=== PATIENT | male | born 1950 | race Caucasian/White ===

== ENCOUNTER 2017-12-04 13:22 | Emergency (ER) | payer MEDICARE, OTHER ==
[~2017-12-04] VITALS: Ht 167.6 cm; Wt 77.1 kg
[~2017-12-04 13:22] MED LIST: DIAZ10 PO; HYDACE5 PO; IBUP800 PO; PRED20 PO
[2017-12-04] MEDS ORDERED: ATOR20 PO (14:04)
[2017-12-04] MEDS ORDERED: LOSARTAN POTAS100 MG PO (14:04)
[2017-12-04] MEDS ORDERED: Metformin HCl1000 MG PO (14:05)
[2017-12-04 14:52] LABS: BASOPHILS ABSOLUTE AUTO 0.07 K/mm3 (0.00-0.23); BASOPHILS PERCENT AUTO 1 % (0-2); EOSINOPHILS ABSOLUTE AUTO 0.43 K/mm3 (0.00-0.68); EOSINOPHILS PERCENT AUTO 4 % (0-6); Hematocrit 44.1 % (37.0-53.0); Hemoglobin 14.1 g/dL (13.5-17.5); IMMATURE GRAN ABSOLUTE AUTO 0.04 K/mm3 (0.00-0.10); IMMATURE GRAN PERCENT AUTO 0 % (0-1); LYMPHOCYTES ABSOLUTE AUTO 2.58 K/mm3 (0.84-5.20); LYMPHOCYTES PERCENT AUTO 24 % (21-46); MONOCYTES ABSOLUTE AUTO 1.46 K/mm3 (0.16-1.47); MONOCYTES PERCENT AUTO 13 % (4-13); Mean Corpuscular HGB 29.4 pg (26.0-34.0); Mean Corpuscular Volume 92 fL (80-100); Mean Platelet Volume 10.1 fL (9.1-12.4); NEUTROPHILS ABSOLUTE AUTO 6.37 K/mm3 (1.96-9.15); NEUTROPHILS PERCENT AUTO 58 % (41-73); Platelet Count 189 K/mm3 (150-400); RDW Standard Deviation 44.7 fL (35.1-46.3); Red Blood Cell Count 4.79 M/mm3 (4.30-5.90); White Blood Cell Count 10.95 K/mm3 (4.00-11.30)
[2017-12-04 15:00] LABS: Alanine Aminotransfer (ALT/SGP 30 U/L (12-78); Albumin, Blood 3.9 g/dL (3.4-5.0); Albumin/Globulin Ratio 1.1 (0.8-1.8); Alk Phos 101 U/L (50-136); Anion Gap 8 mmol/L (6-16); Aspartate Aminotrans (AST/SGOT 19 U/L (12-37); Bilirubin, Total 0.5 mg/dL (0.1-1.0); Blood Urea Nitrogen 14 mg/dL (8-24); Bun/Creatinine Ratio 15.1 (12.0-20.0); CO2, Blood 29 mmol/L (21-32); Calcium, Blood 8.6 mg/dL (8.5-10.1); Chloride, Blood 105 mmol/L (98-108); Creatinine, Blood 0.93 mg/dL (0.60-1.20); Globulin, Blood 3.6 g/dL (2.2-4.0); Glomerular Filtration Rate >60 (60-); Glucose, Blood 135 mg/dL (70-99); Potassium, Blood 3.9 mmol/L (3.5-5.5); Sodium, Blood 142 mmol/L (136-145); Total Protein, Blood 7.5 g/dL (6.4-8.2); Troponin I <0.015 ng/mL (0.000-0.040)
[2017-12-04] MEDS ORDERED: ALBU90OI INH (16:01)
[2017-12-04] MEDS ORDERED: PRED20 PO (16:01)
== END 2017-12-04 16:10 | disposition home or self-care (01) ==
LOC: ER 13:22
PROVIDERS: Emergency Medicine
DX: J20.9 Acute bronchitis, unspecified (principal); J45.909 Unspecified asthma, uncomplicated; Z88.5 Allergy status to narcotic agent; Z79.899 Other long term (current) drug therapy; Z79.84 Long term (current) use of oral hypoglycemic drugs; F17.210 Nicotine dependence, cigarettes, uncomplicated
CPT/HCPCS: 36415; 71046; 80053; 83880; 84443; 84484; 85025; 93005; 93010; 94644; 94664; 99284-25

== ENCOUNTER 2019-01-15 04:42 | Emergency (ER) | payer OTHER, MEDICARE ==
[~2019-01-15] VITALS: Ht 172.7 cm; Wt 72.6 kg
[~2019-01-15 04:42] MED LIST changes: +ALBU90OI INH; +ATOR20 PO; +LOSARTAN POTAS100 MG PO; +Metformin HCl1000 MG PO
[2019-01-15] MEDS ORDERED: THERA1 EACH PO (04:56)
[2019-01-15] MEDS ORDERED: ASCO500 PO (04:57)
[2019-01-15] MEDS ORDERED: Aspir 8181 MG PO (04:57)
[2019-01-15 05:54] LABS: BASOPHILS ABSOLUTE AUTO 0.07 K/mm3 (0.00-0.23); BASOPHILS PERCENT AUTO 1 % (0-2); EOSINOPHILS ABSOLUTE AUTO 0.38 K/mm3 (0.00-0.68); EOSINOPHILS PERCENT AUTO 3 % (0-6); Hematocrit 43.9 % (37.0-53.0); Hemoglobin 13.8 g/dL (13.5-17.5); IMMATURE GRAN ABSOLUTE AUTO 0.05 K/mm3 (0.00-0.10); IMMATURE GRAN PERCENT AUTO 0 % (0-1); LYMPHOCYTES ABSOLUTE AUTO 1.61 K/mm3 (0.84-5.20); LYMPHOCYTES PERCENT AUTO 13 % (21-46); MONOCYTES ABSOLUTE AUTO 1.14 K/mm3 (0.16-1.47); MONOCYTES PERCENT AUTO 9 % (4-13); Mean Corpuscular HGB 29.4 pg (26.0-34.0); Mean Corpuscular HGB Conc 31.4 g/dL (31.5-36.5); Mean Corpuscular Volume 93 fL (80-100); Mean Platelet Volume 10.8 fL (9.1-12.4); NEUTROPHILS ABSOLUTE AUTO 9.41 K/mm3 (1.96-9.15); NEUTROPHILS PERCENT AUTO 74 % (41-73); Platelet Count 189 K/mm3 (150-400); RDW Coefficient Variation 13.2 % (11.7-14.2); RDW Standard Deviation 45.2 fL (35.1-46.3); White Blood Cell Count 12.66 K/mm3 (4.00-11.30)
[2019-01-15 06:20] LABS: Alanine Aminotransfer (ALT/SGP 29 U/L (12-78); Albumin, Blood 3.6 g/dL (3.4-5.0); Albumin/Globulin Ratio 1.1 (0.8-1.8); Alk Phos 92 U/L (50-136); Anion Gap 2 mmol/L (6-16); Aspartate Aminotrans (AST/SGOT 18 U/L (12-37); Bilirubin, Total 0.4 mg/dL (0.1-1.0); Blood Urea Nitrogen 13 mg/dL (8-24); Bun/Creatinine Ratio 14.9 (12.0-20.0); CO2, Blood 30 mmol/L (21-32); Calcium, Blood 8.9 mg/dL (8.5-10.1); Chloride, Blood 110 mmol/L (98-108); Creatinine, Blood 0.88 mg/dL (0.60-1.20); Globulin, Blood 3.3 g/dL (2.2-4.0); Glomerular Filtration Rate >60 (60-); Glucose, Blood 144 mg/dL (70-99); Potassium, Blood 3.9 mmol/L (3.5-5.5); Sodium, Blood 142 mmol/L (136-145); Total Protein, Blood 6.9 g/dL (6.4-8.2); Troponin I <0.015 ng/mL (0.000-0.040)
[2019-01-15] MEDS ORDERED: ALBU90OI INH (06:53)
[2019-01-15] MEDS ORDERED: Prednisone20 MG PO (06:53)
== END 2019-01-15 07:32 | disposition home or self-care (01) ==
LOC: ER 04:42
PROVIDERS: Emergency Medicine
DX: J44.1 Chronic obstructive pulmonary disease with (acute) exacerbation (principal); F17.210 Nicotine dependence, cigarettes, uncomplicated; E11.9 Type 2 diabetes mellitus without complications; D72.829 Elevated white blood cell count, unspecified
CPT/HCPCS: 36415; 71046; 80053; 83880; 84484; 85025; 93005; 93010; 94640; 96374; 99284-25; J2930

== ENCOUNTER 2020-04-28 09:03 | Day surgery (SDC) | payer MEDICARE, OTHER ==
[~2020-04-28] VITALS: Ht 172.7 cm; Wt 84.2 kg
[~2020-04-28 09:03] MED LIST changes: +ASCO500 PO; +Aspir 8181 MG PO; +METO25ER PO; +Prednisone20 MG PO; +THERA1 EACH PO
--- NOTE | 2020-04-28 10:38 | NUR ---
Ambulatory in Day Surgery History, Chart, Medications and Allergies reviewed before start of procedure.Lungs clear T/O to Auscultation. Patient confirms NPO status and agrees with scheduled surgery. Pre-Op teaching done. Pt verbalizes understanding.
--- NOTE | 2020-04-28 18:23 | NUR ---
SHIFT SUMMARY UNFORTUNATLY, SPINAL CONT'S TO HAVE NUMBESS IN BOTTOCKS SO UNABLE TO AMBULATE. DENIES PAIN. EATING, DRINKING, & VOIDING.
[2020-04-29 04:48] LABS: BASOPHILS ABSOLUTE AUTO 0.05 K/mm3 (0.00-0.23); BASOPHILS PERCENT AUTO 0 % (0-2); EOSINOPHILS ABSOLUTE AUTO 0.58 K/mm3 (0.00-0.68); EOSINOPHILS PERCENT AUTO 5 % (0-6); Hematocrit 37.6 % (37.0-53.0); IMMATURE GRAN ABSOLUTE AUTO 0.05 K/mm3 (0.00-0.10); IMMATURE GRAN PERCENT AUTO 0 % (0-1); LYMPHOCYTES PERCENT AUTO 28 % (21-46); MONOCYTES ABSOLUTE AUTO 1.03 K/mm3 (0.16-1.47); MONOCYTES PERCENT AUTO 9 % (4-13); Mean Corpuscular HGB 28.8 pg (26.0-34.0); Mean Corpuscular HGB Conc 31.9 g/dL (31.5-36.5); Mean Corpuscular Volume 90 fL (80-100); Mean Platelet Volume 10.6 fL (9.1-12.4); NEUTROPHILS ABSOLUTE AUTO 6.63 K/mm3 (1.96-9.15); NEUTROPHILS PERCENT AUTO 57 % (41-73); Platelet Count 186 K/mm3 (150-400); RDW Coefficient Variation 12.5 % (11.7-14.2); RDW Standard Deviation 41.1 fL (35.1-46.3); Red Blood Cell Count 4.17 M/mm3 (4.30-5.90); White Blood Cell Count 11.64 K/mm3 (4.00-11.30)
[2020-04-29 05:06] LABS: Bun/Creatinine Ratio 21.1 (12.0-20.0); Calcium, Blood 8.4 mg/dL (8.5-10.1); Creatinine, Blood 1.28 mg/dL (0.60-1.20); Magnesium, Blood 1.7 mg/dL (1.6-2.4); Potassium, Blood 4.7 mmol/L (3.5-5.5)
--- NOTE | 2020-04-29 06:29 | NUR ---
SHIFT SUMMARY: PT POD#1 FOR A LEFT TKA. TERRI WRAP C/D/I WITH POLAR PACK IN PLACE. PAIN BEING MANAGED WITH NORCO AND TORADOL PER EMAR. PT AMBULATING HALLWAY WITH SBA AND FWW/GB. SITTING IN CHAIR THIS MORNING. CBG WNL WITHOUT NEEDING COVERAGE. IV ABX COMPLETE. PT LA PO. VOIDED ONCE THIS SHIFT. PT ENC TO INCREASE PO INTAKE. PLAN FOR PHYSICAL THERAPY TODAY AND DISCHARGE HOME.
[2020-04-29] MEDS ORDERED: HYDR1TAB94 PO (08:55)
--- NOTE | 2020-04-29 14:00 | NUR ---
DISCHARGE ESCORTED OUT VIA W/C AFTER CLEARING THERAPY. PAIN REASONABLY MANAGED. EATING, DRINKING, VOIDING WELL. URINE IS DARK; PT ENCOURAGED TO DRINK MORE WATER VS COFFEE. SCRIPT, DRSGS, & POLAR PACK SENT.
[2020-05-09] MEDS ORDERED: Percocet 5-3251 EACH PO (00:48)
== END 2020-04-29 14:00 | disposition home or self-care (01) ==
LOC: ORSCMMR 09:03 → ORD 10:45 → ORSCMMR 11:00 → ORD 11:00 → SURS 14:03 → ORSCMMR 04-29 14:00
PROVIDERS: Orthopaedic Surgery
PROC: 0SRD0JA Replacement of Left Knee Joint with Synthetic Substitute, Uncemented, Open Approach (ICD-10-PCS; principal; 2020-04-28 11:00)
PROC: 8E0Y0CZ Robotic Assisted Procedure of Lower Extremity, Open Approach (ICD-10-PCS; principal; 2020-04-28 11:00)
DX: M17.12 Unilateral primary osteoarthritis, left knee (principal); I10 Essential (primary) hypertension; J44.9 Chronic obstructive pulmonary disease, unspecified; E11.9 Type 2 diabetes mellitus without complications; E78.5 Hyperlipidemia, unspecified; Z87.891 Personal history of nicotine dependence; Z79.84 Long term (current) use of oral hypoglycemic drugs; Z79.899 Other long term (current) drug therapy
CPT/HCPCS: 27447; S2900; 36415; 73560-LT; 80048; 82947; 83735; 85025; 88300; 97110; 97116; 97162; A9270; C1776; J0171; J0461; J0690; J0735; J1815; J1885; J2250; J2405; J2704; J2795; J7120

== ENCOUNTER 2021-08-14 18:16 | Emergency (ER) | payer MEDICARE, OTHER ==
[~2021-08-14] VITALS: Ht 172.7 cm; Wt 73.5 kg
[~2021-08-14 18:16] MED LIST changes: +HYDR1TAB94 PO; +Percocet 5-3251 EACH PO
[2021-08-14 18:55] LABS: Calcium, Ionized (POC) 1.15 mmol/L (1.10-1.46); Chloride (POC) 98 mmol/L (98-108); Creatinine (POC) 1.6 mg/dL (0.8-1.3); Glucose (ISTAT POC) 490 mg/dL (70-99); Hemoglobin (POC) 10.5 g/dL (13.5-17.5); Potassium (POC) 5.7 mmol/L (3.5-5.5); Sodium (POC) 133 mmol/L (135-148); Total CO2 (POC) 17 mmol/L (21-32)
[2021-08-14 19:00] LABS: Hematocrit 32.2 % (37.0-53.0); Hemoglobin 9.6 g/dL (13.5-17.5); Mean Corpuscular HGB 28.5 pg (26.0-34.0); Mean Corpuscular HGB Conc 29.8 g/dL (31.5-36.5); Mean Corpuscular Volume 96 fL (80-100); Mean Platelet Volume 11.1 fL (9.1-12.4); Platelet Count 217 K/mm3 (150-400); RDW Coefficient Variation 13.5 % (11.7-14.2); RDW Standard Deviation 47.7 fL (35.1-46.3); Red Blood Cell Count 3.37 M/mm3 (4.30-5.90); White Blood Cell Count 13.46 K/mm3 (4.00-11.30)
[2021-08-14 19:19] LABS: Albumin, Blood 2.5 g/dL (3.4-5.0); Albumin/Globulin Ratio 0.7 (0.8-1.8); Bilirubin, Total 0.4 mg/dL (0.1-1.0); Bun/Creatinine Ratio 24.4 (12.0-20.0); Calcium, Blood 8.4 mg/dL (8.5-10.1); Creatinine, Blood 1.6 mg/dL (0.60-1.20); Globulin, Blood 3.4 g/dL (2.2-4.0); Potassium, Blood 5.8 mmol/L (3.5-5.5); Total Protein, Blood 5.9 g/dL (6.4-8.2)
[2021-08-14 19:27] LABS: BAND PERCENT MAN 42 % (0-8); BASOPHILS PERCENT MAN 0 % (0-2); EOSINOPHILS PERCENT MAN 0 % (0-6); LYMPHOCYTES ABSOLUTE MAN 0.53 K/mm3 (0.84-5.20); LYMPHOCYTES PERCENT MAN 4 % (21-46); MONOCYTES ABSOLUTE MAN 1.21 K/mm3 (0.16-1.47); MONOCYTES PERCENT MAN 9 % (4-13); NEUTROPHILS ABSOLUTE MAN 11.71 K/mm3 (1.96-9.15); SEG NEUTROPHILS PERCENT MAN 45 % (41-73); TOTAL CELLS COUNTED 100
[2021-08-14 19:51] LABS: International Normalized Ratio 1.15
[2021-08-14 20:27] LABS: Beta-hydroxybutyrate 6.8 mg/dL (0.2-2.8)
[2021-08-14 20:46] LABS: PCO2 Venous 47.8 mmHg (38-42); pH Blood Venous 7.23 (7.34-7.37)
[2021-08-14 20:47] LABS: Base Excess Venous -7.4 mmol/L; Bicarbonate Venous 18.3 mmol/L (24.0-30.0)
[2021-08-14 22:57] LABS: Base Excess Venous 0.9 mmol/L; Bicarbonate Venous 24.8 mmol/L (24.0-30.0); PCO2 Venous 48.9 mmHg (38-42); PO2 Venous 59.4 mmHg (38-42); pH Blood Venous 7.34 (7.34-7.37)
[2021-08-14 23:00] LABS: Hematocrit 26.8 % (37.0-53.0); Hemoglobin 8.5 g/dL (13.5-17.5); Mean Corpuscular HGB 28.5 pg (26.0-34.0); Mean Corpuscular HGB Conc 31.7 g/dL (31.5-36.5); Mean Platelet Volume 11.2 fL (9.1-12.4); Platelet Count 165 K/mm3 (150-400); RDW Coefficient Variation 13.4 % (11.7-14.2); RDW Standard Deviation 44.4 fL (35.1-46.3); Red Blood Cell Count 2.98 M/mm3 (4.30-5.90); White Blood Cell Count 11.34 K/mm3 (4.00-11.30)
[2021-08-14 23:05] LABS: Calcium, Ionized (POC) 1.17 mmol/L (1.10-1.46); Chloride (POC) 98 mmol/L (98-108); Creatinine (POC) 1.4 mg/dL (0.8-1.3); Glucose (ISTAT POC) 425 mg/dL (70-99); Hemoglobin (POC) 8.5 g/dL (13.5-17.5); Potassium (POC) 4.4 mmol/L (3.5-5.5); Sodium (POC) 136 mmol/L (135-148); Total CO2 (POC) 24 mmol/L (21-32)
[2021-08-14 23:05] LABS: Mean Corpuscular Volume 90 fL (80-100)
[2021-08-14 23:15] LABS: Bun/Creatinine Ratio 34.4 (12.0-20.0); Calcium, Blood 8.2 mg/dL (8.5-10.1); Creatinine, Blood 1.28 mg/dL (0.60-1.20); Potassium, Blood 4.6 mmol/L (3.5-5.5)
== END 2021-08-14 23:45 | disposition short-term general hospital (02) ==
LOC: ER 18:16
PROVIDERS: Emergency Medicine; Student in an Organized Health Care Education/Training Program
DX: K92.2 Gastrointestinal hemorrhage, unspecified (principal); D62 Acute posthemorrhagic anemia; E11.10 Type 2 diabetes mellitus with ketoacidosis without coma; J18.9 Pneumonia, unspecified organism; N17.9 Acute kidney failure, unspecified; J40 Bronchitis, not specified as acute or chronic; J44.1 Chronic obstructive pulmonary disease with (acute) exacerbation; Z88.5 Allergy status to narcotic agent
CPT/HCPCS: 71045; 74177; 80047; 80048; 80053; 82010; 82803; 82947; 83605; 85014; 85025; 85027; 85610; 85730; 86850; 86900; 86901; 86923; 93005; 93010; 94640; 94644; 94664; C9113; J0456; J0610; J0696; J1815; J2930; J7030; J7060; Q9967

== ENCOUNTER → 2021-10-02 | Outpatient (CLI) | payer MEDICARE, OTHER | LOC: LAB SHORT 10:30 → LAB 10:30 → LAB SHORT 10-05 10:30 | DX: K29.50 Unspecified chronic gastritis without bleeding (principal); B96.81 Helicobacter pylori [H. pylori] as the cause of diseases classified elsewhere | CPT/HCPCS: 87338 ==

== ENCOUNTER → 2022-09-09 | Outpatient (CLI) | payer MEDICARE, OTHER ==
[2022-09-09 18:10] LABS: BASOPHILS ABSOLUTE AUTO 0.04 K/mm3 (0.00-0.23); BASOPHILS PERCENT AUTO 1 % (0-2); EOSINOPHILS ABSOLUTE AUTO 0.14 K/mm3 (0.00-0.68); EOSINOPHILS PERCENT AUTO 2 % (0-6); Hematocrit 39.2 % (37.0-53.0); Hemoglobin 12.8 g/dL (13.5-17.5); IMMATURE GRAN ABSOLUTE AUTO 0.03 K/mm3 (0.00-0.10); IMMATURE GRAN PERCENT AUTO 0 % (0-1); LYMPHOCYTES PERCENT AUTO 10 % (21-46); MONOCYTES ABSOLUTE AUTO 1.28 K/mm3 (0.16-1.47); MONOCYTES PERCENT AUTO 15 % (4-13); Mean Corpuscular HGB 29.7 pg (26.0-34.0); Mean Corpuscular HGB Conc 32.7 g/dL (31.5-36.5); Mean Corpuscular Volume 91 fL (80-100); NEUTROPHILS ABSOLUTE AUTO 6.23 K/mm3 (1.96-9.15); NEUTROPHILS PERCENT AUTO 72 % (41-73); Platelet Count 205 K/mm3 (150-400); RDW Coefficient Variation 13.4 % (11.7-14.2); RDW Standard Deviation 44.8 fL (35.1-46.3); Red Blood Cell Count 4.31 M/mm3 (4.30-5.90); White Blood Cell Count 8.62 K/mm3 (4.00-11.30)
[2022-09-09 18:20] LABS: Albumin, Blood 3.3 g/dL (3.4-5.0); Albumin/Globulin Ratio 0.8 (0.8-1.8); Bilirubin, Total 0.6 mg/dL (0.1-1.0); Bun/Creatinine Ratio 13.3 (12.0-20.0); Calcium, Blood 9.4 mg/dL (8.5-10.1); Creatinine, Blood 1.2 mg/dL (0.60-1.20); Globulin, Blood 4.1 g/dL (2.2-4.0); Total Protein, Blood 7.4 g/dL (6.4-8.2)
== END ==
LOC: LAB SHORT 18:04 → LAB 18:04
PROVIDERS: Physician Assistant
DX: R05.9 Cough, unspecified (principal); R07.89 Other chest pain
CPT/HCPCS: 80053; 84484; 85025

== ENCOUNTER → 2023-08-08 | Outpatient (CLI) | payer MEDICARE, OTHER | LOC: LAB SHORT 07:35 → LAB 07:35 | DX: L72.8 Other follicular cysts of the skin and subcutaneous tissue (principal) | CPT/HCPCS: 88304 ==

== ENCOUNTER 2024-03-22 19:04 | Observation (INO) | payer OTHER, MEDICARE ==
[~2024-03-22] VITALS: Ht 172.7 cm; Wt 76.9 kg
[~2024-03-22 19:04] MED LIST changes: +ALBU2.5V5 INH; +Acetaminophen325 M1 PO; +CEPH500 PO; +FLUTICASONE-SA1 EAC1 INH; +IPRAT-ALBUT 0.5-3 ML INH; +METF500 PO; -Metformin HCl1000 MG PO; +ONE DAILY MUL400 MCG PO; +Prednisone10 MG PO; +VISBIOME 112.51 EACH PO
[2024-03-22] MEDS ORDERED: PANT40 PO (19:30)
[2024-03-22] MEDS ORDERED: TRAZ50 PO (19:31)
[2024-03-22] MEDS ORDERED: LYUMJEV KW100 UNIT/1 SQ (19:33)
[2024-03-22 20:03] LABS: BASOPHILS ABSOLUTE AUTO 0.04 K/mm3 (0.00-0.23); BASOPHILS PERCENT AUTO 0 % (0-2); EOSINOPHILS ABSOLUTE AUTO 0.03 K/mm3 (0.00-0.68); EOSINOPHILS PERCENT AUTO 0 % (0-6); Hematocrit 38.2 % (37.0-53.0); Hemoglobin 12.2 g/dL (13.5-17.5); IMMATURE GRAN ABSOLUTE AUTO 0.03 K/mm3 (0.00-0.10); IMMATURE GRAN PERCENT AUTO 0 % (0-1); LYMPHOCYTES ABSOLUTE AUTO 0.82 K/mm3 (0.84-5.20); LYMPHOCYTES PERCENT AUTO 8 % (21-46); MONOCYTES ABSOLUTE AUTO 1.01 K/mm3 (0.16-1.47); MONOCYTES PERCENT AUTO 10 % (4-13); Mean Corpuscular HGB 28.2 pg (26.0-34.0); Mean Corpuscular HGB Conc 31.9 g/dL (31.5-36.5); Mean Corpuscular Volume 88 fL (80-100); Mean Platelet Volume 9.7 fL (9.1-12.4); NEUTROPHILS ABSOLUTE AUTO 7.89 K/mm3 (1.96-9.15); NEUTROPHILS PERCENT AUTO 80 % (41-73); Platelet Count 195 K/mm3 (150-400); RDW Coefficient Variation 14.3 % (11.7-14.2); RDW Standard Deviation 46.4 fL (35.1-46.3); Red Blood Cell Count 4.33 M/mm3 (4.30-5.90); White Blood Cell Count 9.82 K/mm3 (4.00-11.30)
[2024-03-22 20:21] LABS: Albumin, Blood 3.3 g/dL (3.4-5.0); Bilirubin, Total 0.5 mg/dL (0.1-1.0); Calcium, Blood 8.9 mg/dL (8.5-10.1); Creatinine, Blood 1.06 mg/dL (0.60-1.20); Globulin, Blood 3.4 g/dL (2.2-4.0); Potassium, Blood 3.9 mmol/L (3.5-5.5); Total Protein, Blood 6.7 g/dL (6.4-8.2)
[2024-03-22 21:35] LABS: Influenza A, PCR NEGATIVE (NEGATIVE); Influenza B, PCR NEGATIVE (NEGATIVE); Resp Syncytial Virus, PCR NEGATIVE (NEGATIVE); SARS-Cov-2 (COVID-19) PCR, MMC NEGATIVE (NEGATIVE)
[2024-03-22] MEDS ORDERED: Albuterol 2.5 MG/3 ML VIAL INH SCH (23:25)
[2024-03-22] MEDS ORDERED: Ipratropium Bromide INH 0.02% 0.5 mg/2.5ML Vial INH SCH (23:25)
[2024-03-22] MEDS ORDERED: MethylPREDNISolone Sod Succ 125 MG Vial IV ONE (23:25)
[2024-03-23] MEDS ORDERED: FLU VACC TS2024-25(6MOS UP)/PF 45 MCG/0.5 ML SYRINGE IM ONE (00:40)
[2024-03-23] MEDS ORDERED: Ondansetron HCl 2 MG / ML 2ML Vial IV PRN (00:40)
[2024-03-23] MEDS ORDERED: Ipratropium/Albuterol SulF 2.5-0.5MG/3 ML Amp INH PRN (00:40)
[2024-03-23 04:53] LABS: BASOPHILS ABSOLUTE AUTO 0.02 K/mm3 (0.00-0.23); BASOPHILS PERCENT AUTO 0 % (0-2); EOSINOPHILS PERCENT AUTO 0 % (0-6); Hematocrit 36.7 % (37.0-53.0); Hemoglobin 11.6 g/dL (13.5-17.5); IMMATURE GRAN ABSOLUTE AUTO 0.07 K/mm3 (0.00-0.10); IMMATURE GRAN PERCENT AUTO 1 % (0-1); LYMPHOCYTES ABSOLUTE AUTO 0.32 K/mm3 (0.84-5.20); LYMPHOCYTES PERCENT AUTO 3 % (21-46); MONOCYTES ABSOLUTE AUTO 0.17 K/mm3 (0.16-1.47); MONOCYTES PERCENT AUTO 2 % (4-13); Mean Corpuscular HGB 28.2 pg (26.0-34.0); Mean Corpuscular HGB Conc 31.6 g/dL (31.5-36.5); Mean Corpuscular Volume 89 fL (80-100); NEUTROPHILS ABSOLUTE AUTO 9.13 K/mm3 (1.96-9.15); NEUTROPHILS PERCENT AUTO 94 % (41-73); Platelet Count 179 K/mm3 (150-400); RDW Coefficient Variation 14.3 % (11.7-14.2); RDW Standard Deviation 46.6 fL (35.1-46.3); Red Blood Cell Count 4.11 M/mm3 (4.30-5.90); White Blood Cell Count 9.71 K/mm3 (4.00-11.30)
[2024-03-23 05:22] LABS: Albumin, Blood 3.5 g/dL (3.4-5.0); Albumin/Globulin Ratio 1.2 (0.8-1.8); Bilirubin, Total 0.6 mg/dL (0.1-1.0); Bun/Creatinine Ratio 16.6 (12.0-20.0); Calcium, Blood 8.7 mg/dL (8.5-10.1); Creatinine, Blood 0.97 mg/dL (0.60-1.20); Globulin, Blood 2.9 g/dL (2.2-4.0); Potassium, Blood 3.9 mmol/L (3.5-5.5); Total Protein, Blood 6.4 g/dL (6.4-8.2)
[2024-03-23] MEDS ORDERED: Insulin Human Lispro 100 Units/ML 3ML Syringe SC SCH (07:30)
[2024-03-23] MEDS ORDERED: MethylPREDNISolone Sod Succ 125 MG Vial IV SCH (08:00)
[2024-03-23] MEDS ORDERED: Pantoprazole Sodium 40 MG Tab PO SCH (09:00)
[2024-03-23] MEDS ORDERED: Aspirin 81 MG TabEC PO SCH (09:00)
[2024-03-23] MEDS ORDERED: Losartan Potassium 50 MG Tab PO SCH (09:00)
[2024-03-23] MEDS ORDERED: Enoxaparin 40 MG/0.4 ML SYR SC SCH (09:00)
[2024-03-23] MEDS ORDERED: Metoprolol Succinate 25 MG TABCR PO SCH (09:00)
[2024-03-23 09:27] VITALS: BP 114/57
[2024-03-23] MEDS ORDERED: TYLENOL PM PO (09:55)
[2024-03-23] MEDS ORDERED: ALBU90OI INH (09:59)
--- NOTE | 2024-03-23 11:04 | NUR ---
OOB TO BATHROOM ON RA, SATS 95% ON RA, PRODUCTIVE COUGH YELLOW SPUTUMN
[2024-03-23] MEDS ORDERED: AZIT500 PO (13:54)
[2024-03-23] MEDS ORDERED: PRED20 PO (13:56)
--- NOTE | 2024-03-23 14:45 | NUR ---
DISCHARGED HOME, ACCOMPANTYING, BOTH STATED UNDERSTANDING FOR DISCHARGE NEEDS AND DENIED FURTHER QUESTIONING
[2024-03-23] MEDS ORDERED: TraZODone HCl 50 MG Tab PO SCH (21:00)
== END 2024-03-23 15:10 | disposition home or self-care (01) ==
LOC: ER 19:04 → MEDS 19:05 → ER 03-23 00:34 → ERHOLD 03-23 00:34 → MEDS 03-23 00:34 → ERHOLD 03-23 09:06 → MEDS 03-23 09:06
PROVIDERS: Student in an Organized Health Care Education/Training Program; ADMIT Internal Medicine
DX: J96.01 Acute respiratory failure with hypoxia (principal); J44.1 Chronic obstructive pulmonary disease with (acute) exacerbation; E78.5 Hyperlipidemia, unspecified; E11.9 Type 2 diabetes mellitus without complications; I10 Essential (primary) hypertension; K21.9 Gastro-esophageal reflux disease without esophagitis; N28.1 Cyst of kidney, acquired; Z79.4 Long term (current) use of insulin; Z79.899 Other long term (current) drug therapy; Z79.84 Long term (current) use of oral hypoglycemic drugs; Z79.82 Long term (current) use of aspirin; Z88.5 Allergy status to narcotic agent; Z87.891 Personal history of nicotine dependence; R05.1 Acute cough; M53.84 Other specified dorsopathies, thoracic region; M53.86 Other specified dorsopathies, lumbar region
CPT/HCPCS: 0241U; 71046; 71260; 80053; 82947; 83880; 84484; 85025; 85379; 93005; 93010; 94644; 94664; 96374-59; 99285-25; A9270; J1650; J2919; Q9967